=== PATIENT | male | born 2000 | race African-American/Black ===

== ENCOUNTER 2023-07-12 | Inpatient (IN) | payer MEDICAID ==
[~2023-07-12] VITALS: Ht 182.9 cm; Wt 101.6 kg
[2023-07-12 00:44] LABS: BASOPHILS % (AUTO) 1.2 % (0.0-2.0); EOSINOPHILS % (AUTO) 1.2 % (1.0-6.0); HEMATOCRIT 48.3 % (41-53); HEMOGLOBIN 16.2 g/dL (13.5-17.5); LYMPHOCYTES # (AUTO) 3.3 K/uL (1.0-4.8); LYMPHOCYTES % (AUTO) 40.8 % (22.0-44.0); MEAN CORPUSCULAR HEMOGLOBIN 28.3 pg (26.0-34.0); MEAN CORPUSCULAR HGB CONC 33.6 G/dL (31.0-37.0); MEAN CORPUSCULAR VOLUME 84 fL (80-100); MONOCYTES # (AUTO) 0.5 K/uL (0.1-1.0); MONOCYTES % (AUTO) 6.3 % (2.0-9.0); NEUTROPHILS # (AUTO) 4.1 K/uL (1.8-7.7); NEUTROPHILS % (AUTO) 50.5 % (40.0-70.0); PLATELET COUNT (AUTO) 353 K/uL (150-450); RED BLOOD CELL COUNT(AUTO) 5.74 MIL/uL (4.50-5.90); RED CELL DISTRIBUTION WIDTH 13.8 % (11.5-14.5); WHITE BLOOD COUNT (AUTO) 8.2 K/uL (4.5-11.0)
[2023-07-12 00:47] LABS: ANION GAP 5 mmol/L (8-16); CALCIUM, TOTAL 9.4 mg/dL (8.8-10.5); CARBON DIOXIDE 33 mmol/L (22-29); CHLORIDE 102 mmol/L (98-107); GLOMERULAR FILTR. RATE CALC > 60 mL/min (>60); GLUCOSE,RANDOM 101 mg/dL (70-110); POTASSIUM 4.1 mmol/L (3.5-5.1); SODIUM SERUM 140 mmol/L (136-145); UREA NITROGEN, BLOOD 11 mg/dL (7-18)
[2023-07-12 00:53] LABS: ALANINE AMINOTRANSFERASE 26 U/L (12-78); ALBUMIN 3.8 g/dL (3.4-5.0); ALKALINE PHOSPHATASE 68 U/L (46-116); ASPARTATE AMINOTRANSFERASE 17 U/L (15-37); BILIRUBIN,TOTAL 0.5 mg/dL (0.1-1.0); TOTAL PROTEIN, SERUM 7.8 g/dL (6.4-8.2)
[2023-07-12 00:54] LABS: ALCOHOL, BLOOD (SERUM) < 3 mg/dL (0-10)
[2023-07-12 01:20] LABS: COVID AG,FIA SOURCE NASAL SWAB
[2023-07-12 01:48] LABS: SARS-COV2 (COVID) ANTIGEN,FIA Negative (Negative)
[2023-07-12] MEDS ORDERED: ARIP5TAB37 PO (03:28)
[2023-07-12] MEDS ORDERED: LOSA1TAB37 PO (03:28)
[2023-07-12] MEDS ORDERED: CHOL500013 PO (03:28)
[2023-07-12] MEDS ORDERED: ATIVAN (03:28)
[2023-07-12] MEDS ORDERED: LISD50CA PO (03:28)
[2023-07-12] MEDS ORDERED: LORazepam 2 MG TABLET PO PRN (05:00)
[2023-07-12] MEDS ORDERED: HALOPERIDOL 5 MG TABLET PO PRN (05:00)
[2023-07-12] MEDS ORDERED: ZOLPIDEM TARTRATE 10 MG TABLET PO PRN (05:00)
[2023-07-12] MEDS ORDERED: ARIPiprazole 5 MG TABLET PO ONE (06:00)
[2023-07-12 09:44] VITALS: BP 129/84; PULSE 75; RESP 18; TEMP 97.5; O2SAT 98
[2023-07-12] MEDS ORDERED: LORA-1000 SL (11:02)
[2023-07-12] MEDS ORDERED: PNEUMOCOCCAL VACCINE POLYVALENT 0.5 ML SYRINGE [PPSV23] IM. ONE (11:15)
[2023-07-12] MEDS: LOSARTAN POTASSIUM 50 MG TABLET PO SCH (14:08)
[2023-07-12] MEDS: RisperiDONE 0.5 MG TABLET PO SCH (17:00)
[2023-07-12] MEDS: LITHIUM CARBONATE 300 MG CAPSULE PO SCH (17:00)
[2023-07-12] MEDS: DIVALPROEX SODIUM 500 MG DR TABLET PO SCH (17:00)
[2023-07-12] MEDS ORDERED: OMEPRAZOLE 20 MG CAPSULE PO PRN (19:30)
[2023-07-12] MEDS ORDERED: PETROLATUM,WHITE 28 GM JELLY TP PRN (19:30)
[2023-07-12] MEDS ORDERED: ALBUTEROL SULFATE HFA 90 MCG/PUFF 8 GM INHALER IH PRN (19:30)
[2023-07-12] MEDS ORDERED: CloNIDine HCL 0.1 MG TABLET PO PRN (19:30)
[2023-07-12] MEDS ORDERED: ACETAMINOPHEN 325 MG TABLET PO PRN (19:30)
[2023-07-12] MEDS ORDERED: MAGNESIUM HYDROXIDE SUSPENSION 30 ML UDCUP PO PRN (19:30)
[2023-07-12] MEDS ORDERED: BACITRACIN 28 GM OINTMENT TP PRN (19:30)
[2023-07-12] MEDS ORDERED: IBUPROFEN 600 MG TABLET PO PRN (19:30)
[2023-07-12] MEDS ORDERED: MAG HYDROX/ALUMINUM HYD/SIMETH ES 30 ML SUSPENSION UDCUP PO PRN (19:30)
[2023-07-12] MEDS ORDERED: LOPERAMIDE HCL 2 MG CAPSULE PO PRN (19:30)
[2023-07-12] MEDS ORDERED: BENZOCAINE/MENTHOL LOZENGE PO PRN (19:30)
[2023-07-12] MEDS ORDERED: DOCUSATE SODIUM 100 MG CAPSULE PO PRN (19:30)
[2023-07-12] MEDS ORDERED: ONDANSETRON HCL 4 MG TABLET PO PRN (19:30)
[2023-07-12 20:26] VITALS: BP 107/73; PULSE 90; RESP 18; TEMP 97.2; O2SAT 98
[2023-07-12 21:35] VITALS: BP 107/73; PULSE 90; RESP 18; TEMP 97.2
[2023-07-13] MEDS: LOSARTAN POTASSIUM 50 MG TABLET PO SCH (08:54)
[2023-07-13] MEDS: DIVALPROEX SODIUM 500 MG DR TABLET PO SCH (08:58)
[2023-07-13] MEDS: LITHIUM CARBONATE 300 MG CAPSULE PO SCH (08:59)
[2023-07-13] MEDS: RisperiDONE 0.5 MG TABLET PO SCH (08:59)
[2023-07-13] MEDS ORDERED: LITH300C3 PO (09:38)
[2023-07-13] MEDS ORDERED: RISP0.5T66 PO (09:38)
[2023-07-13 09:39] VITALS: BP 131/83; PULSE 84; RESP 18; TEMP 98
[2023-07-13] MEDS ORDERED: DIVA-112 PO (09:39)
[2023-07-13] MEDS ORDERED: LOSA-382 PO (10:01)
== END 2023-07-13 17:26 | disposition home or self-care (01) | DRG 754 ==
LOC: EMS → 3EI 08:47
PROVIDERS: ADMIT Psychiatry & Neurology Psychiatry; ATTEND Psychiatry & Neurology Psychiatry
DX: F32.9 Major depressive disorder, single episode, unspecified (principal); R45.851 Suicidal ideations; F41.9 Anxiety disorder, unspecified; F84.0 Autistic disorder; G47.00 Insomnia, unspecified; I10 Essential (primary) hypertension; K59.00 Constipation, unspecified; Z20.822 Contact with and (suspected) exposure to COVID-19
CPT/HCPCS: 80053; 85025; 99285; G0480